=== PATIENT | male | born 1960 | race Caucasian/White ===

== ENCOUNTER 2017-11-08 08:16 | Day surgery (SDC) | payer BC ==
[~2017-11-08 08:16] MED LIST: LIDOCAINE 2% INJ 100 MG/5 ML SDV (FOR ANES.) As Ordered; PROPOFOL 200 MG/20 ML VIAL As Ordered
[2017-11-08] MEDS: NS 1,000 ML IV (08:30)
[2017-11-08] MEDS ORDERED: PROPOFOL 200 MG/20 ML VIAL As Ordered (09:29)
== END 2017-11-08 10:22 | disposition home or self-care (01) ==
LOC: M OPP 08:16
DX: K64.0 First degree hemorrhoids (principal); K57.30 Diverticulosis of large intestine without perforation or abscess without bleeding; R93.3 Abnormal findings on diagnostic imaging of other parts of digestive tract; R19.7 Diarrhea, unspecified; K62.5 Hemorrhage of anus and rectum; E03.9 Hypothyroidism, unspecified; Z79.899 Other long term (current) drug therapy; Z87.891 Personal history of nicotine dependence
CPT/HCPCS: 45378

== ENCOUNTER → 2019-07-06 | Outpatient (CLI) | payer OTHER ==
[~2019-07-06] MED LIST changes: +LEVO50TA5; -LIDOCAINE 2% INJ 100 MG/5 ML SDV (FOR ANES.) As Ordered; -PROPOFOL 200 MG/20 ML VIAL As Ordered
--- NOTE | 2019-07-06 17:56 | ECGEPIP ---
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
== END ==
LOC: M EKG 08:38
PROVIDERS: ATTEND Orthopaedic Surgery Hand Surgery
DX: Z01.810 Encounter for preprocedural cardiovascular examination (principal); I49.9 Cardiac arrhythmia, unspecified

== ENCOUNTER → 2019-08-21 | Outpatient (CLI) | payer OTHER ==
[~2019-08-21] MED LIST changes: +LOVA20TA2 PO
== END ==
LOC: M LABSMTC 09:46
PROVIDERS: ATTEND Anesthesiology
DX: Z01.812 Encounter for preprocedural laboratory examination (principal); Z11.59 Encounter for screening for other viral diseases

== ENCOUNTER 2019-08-24 07:02 | Day surgery (SDC) | payer OTHER ==
[~2019-08-24] VITALS: Ht 182.9 cm; Wt 93.9 kg
[~2019-08-24 07:02] MED LIST changes: +LIDOCAINE 1% MDV 20ML VIAL SQ PRN; +LR 1,000 ML IV ONE
[2019-08-24] MEDS ORDERED: ceFAZolin SOD 2 GM in IV 1 EA IV ONE (08:00)
[2019-08-24] MEDS ORDERED: BUPIVACAINE/EPIN 0.25% 30 ML VIAL As Ordered ONE (09:11)
[2019-08-24] MEDS ORDERED: ONDANSETRON 4MG/2ML VIAL As Ordered ONE (09:19)
[2019-08-24] MEDS ORDERED: SUGAMMADEX SODIUM 500 MG/5 ML VIAL (BRIDION) As Ordered ONE (09:19)
[2019-08-24] MEDS ORDERED: dexameTHASONE 4 MG/ML 1ML VIAL (J1100 PER 1MG) As Ordered ONE (09:19)
[2019-08-24] MEDS ORDERED: KETOROLAC 60 MG/2 ML VIAL As Ordered ONE (09:19)
[2019-08-24] MEDS ORDERED: ACETAMINOPHEN 1000MG 100ML IV BTL (OFIRMEV) (J0131 PER 10MG) As Ordered ONE (09:19)
[2019-08-24] MEDS ORDERED: propofoL 200 MG/20 ML VIAL As Ordered ONE (09:19)
[2019-08-24] MEDS ORDERED: METOCLOPRAMIDE INJ 10MG/2ML VIAL (J2765 PER 1) As Ordered ONE (09:19)
[2019-08-24] MEDS ORDERED: LIDOCAINE 2% 100MG/5ML SDV (FOR ANES.) As Ordered ONE (09:19)
[2019-08-24] MEDS ORDERED: MIDAZOLAM INJ 2MG/2ML VIAL (J2250 PER 1MG) As Ordered ONE (09:19)
[2019-08-24] MEDS ORDERED: ROCURONIUM BROMIDE 50 MG/5 ML VIAL As Ordered ONE (09:19)
[2019-08-24] MEDS ORDERED: fentaNYL 100 MCG/2 ML INJECTION (J3010) As Ordered ONE (09:21)
[2019-08-24] MEDS ORDERED: LR 1,000 ML IV SCH (10:30)
[2019-08-24] MEDS ORDERED: fentaNYL 100 MCG/2 ML INJECTION (J3010) IV PRN (10:30)
[2019-08-24] MEDS ORDERED: oxyCODONE 5MG TAB PO PRN ×2 (10:30)
[2019-08-24 10:55] VITALS: BP 141/88
--- NOTE | 2019-08-25 10:29 | RO ---
DATE OF PROCEDURE: 08/24/2019 PREOPERATIVE DIAGNOSES: Right medial meniscal tear, chronic anterior cruciate ligament (ACL) tear. POSTOPERATIVE DIAGNOSES: Right medial meniscal tear, chronic anterior cruciate ligament tear. PROCEDURE: Right partial medial meniscectomy with extensive debridement. SURGEON: Lee Khalil MD SILK BRUSHER: None. ANESTHESIA: General. INDICATIONS: This is a 59-year-old male that failed extensive nonoperative treatment but continued having significant mechanical symptoms. We discussed operative intervention including, but not limited to, the risks of infection, damage to surrounding structures, incomplete relief. Patient expressed understanding and wished to proceed. PREOPERATIVE ANTIBIOTICS: 2 grams of Ancef. BLOOD LOSS: Minimal. TOURNIQUET TIME: 30 minutes. OPERATIVE DESCRIPTION: Patient was brought back to the operating room (OR) in the supine position. Underwent general anesthesia. Then, the right leg was prepped and draped in the usual fashion. We had time-out, confirming site, side, and surgery. Then, we injected 30 mL of 0.25% of Marcaine with epinephrine overlying the anterior, medial, and lateral portal incisions and all of the remaining within the joint. We then exsanguinated the limb and elevated tourniquet up to 250 mmHg. We then made a stab incision for our anterior medial and anterior lateral portals. Entered the suprapatellar pouch. There were only grade 1 changes on the undersurface of the patella and grade 2 posterior changes of the trochlea. Entered the notch, at which point we encountered extensive synovium and scarring, likely from the chronic ACL tear and meniscal tear. We then completed extensive debridement in both the anteromedial and anterolateral portals in order to increase our visualization, at which point then we were able to identify the chronic ACL tear and a left meniscus fragment within the medial compartment entering into the notch. We debrided this with combination of arthroscopic straight scissors, straight biter, and shaver. We followed it to its attachment at the anterior and medial aspect of the meniscus and smoothed and contoured it with the remaining meniscus. Debrided it fully to the posterior aspect of the notch, to the posterior hand, at which point we entered the medial compartment. We identified no further meniscal tear or instability. There was only grade 1/2 changes of the medial compartment. Entering the lateral compartment there were only grade 1 changes, softening of cartilage, and mild fraying of the lateral meniscus but no identifiable tear. This was probed, at which point we then removed all fluid from the joint, closed the portals with #2-0 nylon, placed a dressing of Adaptic, gauze, Kerlix, and Chris. Patient was awakened and taken to postanesthesia care unit (PACU) in stable condition. POSTOPERATIVE PLAN: Patient will work on range of motion, pain control, and weightbearing as tolerated from day #1. We will see him in the office in 2 weeks for a repeat clinical check at that time.
== END 2019-08-24 11:25 | disposition home or self-care (01) ==
LOC: M SDC 07:02
PROVIDERS: ATTEND Orthopaedic Surgery Hand Surgery
DX: M23.303 Other meniscus derangements, unspecified medial meniscus, right knee (principal); M23.51 Chronic instability of knee, right knee; K21.9 Gastro-esophageal reflux disease without esophagitis; E78.5 Hyperlipidemia, unspecified; Z79.82 Long term (current) use of aspirin; Z79.899 Other long term (current) drug therapy
CPT/HCPCS: 29881; J0131; J0690; J1100; J1885; J2250; J2405; J2765; J3010